=== PATIENT | female | born 1960 | race Caucasian/White ===

== ENCOUNTER 2018-10-19 07:14 | Inpatient (IN) | payer MEDICAID, OTHER ==
[~2018-10-19] VITALS: Ht 165.1 cm; Wt 90.7 kg
[2018-10-19] MEDS ORDERED: ONDANSETRON HCL 4MG/2ML INJ IV STA (07:51)
[2018-10-19] MEDS ORDERED: MORPHINE SULFATE 4 MG/ML CPJ (NOT FOR IM USE) IV STA (07:51)
[2018-10-19] MEDS ORDERED: SODIUM CHLORIDE 0.9% 1,000 ML IV ONE (07:51)
[2018-10-19 08:07] LABS: BASOPHILS % 0.7 % (0.0-2.0); HEMATOCRIT. 39.1 % (36.0-48.0); HEMOGLOBIN. 13.2 g/dL (12.0-16.0); LYMPHOCYTES % 29.5 % (20.0-50.0); MEAN CORPUSCULAR HEMOGLOBIN 31.3 pg (28.0-32.0); MEAN CORPUSCULAR VOLUME 92.5 fL (81.0-99.0); MEAN PLATELET VOLUME 8.4 fl (7.4-10.4); MONOCYTES % 7.9 % (2.0-8.0); NEUTROPHILS % 59.9 % (40.0-76.0); PLATELET 244 x1000/uL (130-400); RED BLOOD CELL COUNT 4.23 mill/uL (4.2-5.4); RED CELL DISTRIBUTION WIDTH 12.9 % (11.6-14.6)
[2018-10-19 08:13] LABS: CHLORIDE 108 mEq/L (98-107)
[2018-10-19 08:18] LABS: D-DIMER 0.64 mg/L FEU (<0.50); PARTIAL THROMBOPLASTIN TIME 29.9 sec (23.4-31.0); PROTHROMBIN TIME 10.7 sec (9.6-11.0)
[2018-10-19] MEDS ORDERED: CLONIDINE 0.1MG TABLET PO PRN ×2 (13:30→15:45)
[2018-10-19 14:30] VITALS: BP 157/70
[2018-10-19] MEDS ORDERED: ASPIRIN 81MG EC TABLET PO SCH (14:30)
[2018-10-19 14:54] VITALS: BP 157/70
[2018-10-19] MEDS ORDERED: LISI10TA5 MT (15:13)
[2018-10-19] MEDS ORDERED: HYDR25TA MT (15:13)
[2018-10-19] MEDS ORDERED: METF-815 MT (15:13)
[2018-10-19] MEDS ORDERED: ONDANSETRON HCL 4MG/2ML INJ IV PRN (15:45)
[2018-10-19] MEDS ORDERED: IPRATROPIUM/ALBUTEROL 0.5-3(2.5)MG/3ML NEB INH PRN (15:45)
[2018-10-19] MEDS ORDERED: LORAZEPAM 0.5MG TABLET PO PRN (15:45)
[2018-10-19] MEDS ORDERED: HYDROCODONE/ACETAMINOPHEN 5/325MG TABLET PO PRN (15:45)
[2018-10-19] MEDS ORDERED: DOCUSATE SODIUM 100MG CAPSULE PO PRN (15:45)
[2018-10-19] MEDS: AMLODIPINE 2.5MG TABLET PO SCH ×2 (15:49→21:44)
[2018-10-19] MEDS: LOSARTAN POTASSIUM 25 MG TABLET PO SCH (15:50)
[2018-10-19 16:00] VITALS: BP 166/41
[2018-10-19] MEDS ORDERED: DEXTROSE 50% WATER 50ML SYRINGE IV PRN ×2 (16:45)
[2018-10-19] MEDS: BLOOD SUGAR DIAGNOSTIC STRIP TEST SCH ×2 (17:22→21:44)
[2018-10-19] MEDS: INSULIN LISPRO 100 UNITS/ML SUBCUT SCH ×2 (17:23→21:00)
[2018-10-19] MEDS: NITROGLYCERIN OINT 1GM/INCH UDPKT TD SCH (17:59)
[2018-10-19 20:00] VITALS: BP 126/60
[2018-10-20] VITALS: BP 109/55
[2018-10-20] MEDS: ACETAMINOPHEN 325MG TABLET PO PRN ×2 (02:03→08:54)
[2018-10-20 04:00] VITALS: BP 148/62
[2018-10-20] MEDS: BLOOD SUGAR DIAGNOSTIC STRIP TEST SCH ×4 (06:00→20:50)
[2018-10-20] MEDS: NITROGLYCERIN OINT 1GM/INCH UDPKT TD SCH ×2 (06:00)
[2018-10-20 06:46] LABS: BASOPHILS % 1.1 % (0.0-2.0); EOSINOPHILS % 2.2 % (0.0-5.0); HEMATOCRIT. 40.4 % (36.0-48.0); HEMOGLOBIN. 13.8 g/dL (12.0-16.0); LYMPHOCYTES % 32.1 % (20.0-50.0); MEAN CORPUSCULAR HEMOGLOBIN 31.5 pg (28.0-32.0); MEAN CORPUSCULAR VOLUME 92.3 fL (81.0-99.0); MEAN PLATELET VOLUME 8.5 fl (7.4-10.4); NEUTROPHILS % 57.6 % (40.0-76.0); PLATELET 215 x1000/uL (130-400); RED BLOOD CELL COUNT 4.37 mill/uL (4.2-5.4); RED CELL DISTRIBUTION WIDTH 13.1 % (11.6-14.6)
[2018-10-20 07:01] LABS: CHLORIDE 106 mEq/L (98-107)
[2018-10-20 07:12] LABS: CREATINE KINASE MB FRACTION 8.6 ng/mL (0.5-3.6)
[2018-10-20 07:14] LABS: LDL CHOLESTEROL 85 mg/dL (5-100)
[2018-10-20 07:16] LABS: CREATINE KINASE 234 IU/L (26-192)
[2018-10-20 07:17] LABS: HDL CHOLESTEROL 58 mg/dL (40-59)
[2018-10-20] MEDS: INSULIN LISPRO 100 UNITS/ML SUBCUT SCH ×4 (07:40→21:00)
[2018-10-20 08:00] VITALS: BP 141/71
[2018-10-20] MEDS: LOSARTAN POTASSIUM 25 MG TABLET PO SCH (08:55)
[2018-10-20] MEDS: AMLODIPINE 2.5MG TABLET PO SCH ×2 (08:55→21:00)
[2018-10-20] MEDS: ASPIRIN 81MG EC TABLET PO SCH (08:55)
[2018-10-20] MEDS ORDERED: ENOXAPARIN 80MG/0.8ML SYR SUBCUT NR (10:15)
[2018-10-20] MEDS: METOPROLOL TARTRATE 25MG TABLET PO SCH ×2 (11:16→21:00)
[2018-10-20] MEDS ORDERED: NITROGLYCERIN OINT 1GM/INCH UDPKT TD SCH (14:00)
[2018-10-20 15:04] LABS: CLARITY URINE CLEAR (CLEAR); COLOR URINE YELLOW (YELLOW); KETONES URINE NEGATIVE (NEGATIVE); LEUKOCYTE ESTERASE URINE TRACE (NEGATIVE); NITRITE URINE NEGATIVE (NEGATIVE); OCCULT BLOOD URINE NEGATIVE (NEGATIVE); PROTEIN URINE NEGATIVE (NEGATIVE); SPECIFIC GRAVITY URINE 1.004 (1.005-1.030); UROBILINOGEN URINE 0.2 E.U./dL (0.2-1.0)
[2018-10-20 15:25] LABS: *AMPHETAMINES SCREEN URINE NEGATIVE (NEGATIVE); *BARBITURATES SCREEN URINE NEGATIVE (NEGATIVE); *BENZODIAZEPINES SCREEN URINE NEGATIVE (NEGATIVE); *COCAINE SCREEN URINE NEGATIVE (NEGATIVE); METHADONE URINE SCREEN NEGATIVE (NEGATIVE); OPIATES URINE SCREEN NEGATIVE (NEGATIVE)
[2018-10-20 15:26] LABS: CANNABINOID URINE SCREEN NEGATIVE (NEGATIVE); PHENCYCLIDINE URINE SCREEN NEGATIVE (NEGATIVE)
[2018-10-20 15:47] LABS: CREATINE KINASE MB FRACTION 4.6 ng/mL (0.5-3.6)
[2018-10-20 16:00] VITALS: BP 115/51
[2018-10-20 20:00] VITALS: BP 119/55
[2018-10-20] MEDS: ATORVASTATIN CALCIUM 40MG TABLET PO SCH (21:13)
[2018-10-21] VITALS: BP 125/60
[2018-10-21 04:00] VITALS: BP 124/68
[2018-10-21] MEDS: BLOOD SUGAR DIAGNOSTIC STRIP TEST SCH ×4 (05:49→21:54)
[2018-10-21] MEDS: INSULIN LISPRO 100 UNITS/ML SUBCUT SCH ×4 (05:59→21:00)
[2018-10-21 06:24] LABS: BASOPHILS % 0.7 % (0.0-2.0); EOSINOPHILS % 2.3 % (0.0-5.0); HEMATOCRIT. 39.7 % (36.0-48.0); HEMOGLOBIN. 13.6 g/dL (12.0-16.0); LYMPHOCYTES % 30.8 % (20.0-50.0); MEAN CORPUSCULAR HEMOGLOBIN 31.7 pg (28.0-32.0); MEAN CORPUSCULAR VOLUME 92.5 fL (81.0-99.0); MEAN PLATELET VOLUME 8.7 fl (7.4-10.4); MONOCYTES % 6.7 % (2.0-8.0); NEUTROPHILS % 59.5 % (40.0-76.0); PLATELET 238 x1000/uL (130-400); RED CELL DISTRIBUTION WIDTH 13.3 % (11.6-14.6)
[2018-10-21 08:00] VITALS: BP 135/65
[2018-10-21] MEDS: LOSARTAN POTASSIUM 25 MG TABLET PO SCH (08:40)
[2018-10-21] MEDS: ASPIRIN 81MG EC TABLET PO SCH (08:40)
[2018-10-21] MEDS: AMLODIPINE 2.5MG TABLET PO SCH ×2 (08:40→21:48)
[2018-10-21] MEDS: METOPROLOL TARTRATE 25MG TABLET PO SCH ×2 (08:41→21:47)
[2018-10-21 09:09] LABS: CHLORIDE 110 mEq/L (98-107)
[2018-10-21 12:00] VITALS: BP 143/69
[2018-10-21 15:52] VITALS: BP 141/77
[2018-10-21] MEDS: ACETAMINOPHEN 325MG TABLET PO PRN (18:00)
[2018-10-21 20:00] VITALS: BP 130/67
[2018-10-21] MEDS: ATORVASTATIN CALCIUM 40MG TABLET PO SCH (21:48)
[2018-10-22] VITALS: BP 126/56
[2018-10-22 04:00] VITALS: BP 122/54
[2018-10-22 06:29] LABS: BASOPHILS % 0.6 % (0.0-2.0); EOSINOPHILS % 1.9 % (0.0-5.0); HEMATOCRIT. 39.9 % (36.0-48.0); HEMOGLOBIN. 13.6 g/dL (12.0-16.0); LYMPHOCYTES % 30.5 % (20.0-50.0); MEAN CORPUSCULAR HEMOGLOBIN 31.7 pg (28.0-32.0); MEAN PLATELET VOLUME 8.7 fl (7.4-10.4); PLATELET 240 x1000/uL (130-400); RED BLOOD CELL COUNT 4.29 mill/uL (4.2-5.4); RED CELL DISTRIBUTION WIDTH 13.1 % (11.6-14.6)
[2018-10-22] MEDS: BLOOD SUGAR DIAGNOSTIC STRIP TEST SCH ×2 (07:09→12:01)
[2018-10-22] MEDS: INSULIN LISPRO 100 UNITS/ML SUBCUT SCH ×2 (07:09→12:01)
[2018-10-22 07:35] LABS: CHLORIDE 109 mEq/L (98-107)
[2018-10-22 08:00] VITALS: BP 138/84
[2018-10-22] MEDS: ASPIRIN 81MG EC TABLET PO SCH (09:00)
[2018-10-22] MEDS: METOPROLOL TARTRATE 25MG TABLET PO SCH (09:00)
[2018-10-22] MEDS: AMLODIPINE 2.5MG TABLET PO SCH (09:10)
[2018-10-22] MEDS: LOSARTAN POTASSIUM 25 MG TABLET PO SCH (09:10)
[2018-10-22] MEDS ORDERED: LIDOCAINE HCL 1% 20ML VIAL (Pyxis) INJ ONE (09:36)
[2018-10-22] MEDS ORDERED: FENTANYL CITRATE/PF 50MCG/ML 2ML VIAL ONE (09:37)
[2018-10-22] MEDS ORDERED: IODIXANOL 320MG/ML 100 ML BOTTLE IV ONE (09:37)
[2018-10-22] MEDS ORDERED: MIDAZOLAM HCL 2 MG/2 ML VIAL ONE (09:37)
[2018-10-22] MEDS ORDERED: ATROPINE SULFATE 1MG/10ML SYR IV PRN (10:30)
[2018-10-22] MEDS ORDERED: ACETAMINOPHEN 325MG TABLET PO PRN (10:30)
[2018-10-22 12:00] VITALS: BP 137/71
[2018-10-22] MEDS: ACETAMINOPHEN 325MG TABLET PO PRN (12:33)
[2018-10-22] MEDS ORDERED: NICARDIPINE 100MCG/ML 10ML VIAL (CATH LAB) IV ONE (13:42)
[2018-10-22] MEDS ORDERED: HEPARIN SODIUM 1,000 UNIT/1ML VIAL IV ONE (13:42)
[2018-10-22] MEDS ORDERED: NITROGLYCERIN 50MCG/ML 10ML VIAL (CATH LAB) IV ONE (13:42)
[2018-10-22 15:13] VITALS: BP 154/76
== END 2018-10-22 16:35 | disposition home or self-care (01) | DRG 190 ==
LOC: ER 07:14 → 8WST 10:38 → EDBEDREQ 12:58 → ENRESERV 12:59 → 3WST 10-22 10:35
PROVIDERS: ADMIT Internal Medicine; ATTEND Internal Medicine
PROC: 4A023N7 Measurement of Cardiac Sampling and Pressure, Left Heart, Percutaneous Approach (ICD-10-PCS; principal; 2018-10-22)
PROC: B2111ZZ Fluoroscopy of Multiple Coronary Arteries using Low Osmolar Contrast (ICD-10-PCS; 2018-10-22)
PROC: B2151ZZ Fluoroscopy of Left Heart using Low Osmolar Contrast (ICD-10-PCS; 2018-10-22)
DX: I21.4 Non-ST elevation (NSTEMI) myocardial infarction (principal); E66.01 Morbid (severe) obesity due to excess calories; E11.9 Type 2 diabetes mellitus without complications; I16.0 Hypertensive urgency; R00.1 Bradycardia, unspecified; I10 Essential (primary) hypertension; E78.5 Hyperlipidemia, unspecified; I77.1 Stricture of artery; Z79.84 Long term (current) use of oral hypoglycemic drugs; Z90.722 Acquired absence of ovaries, bilateral; Z90.710 Acquired absence of both cervix and uterus; Z90.49 Acquired absence of other specified parts of digestive tract; Z68.33 Body mass index [BMI] 33.0-33.9, adult; Z71.3 Dietary counseling and surveillance
CPT/HCPCS: 36415; 71045; 78582; 80048; 80061; 80305; 82550; 82553; 82962; 83036; 83735; 83880; 84443; 84484; 85379; 93005; 93306; 93458; 93970; 96374; 99285; A9558; C1769; C1887; C1893; J1644; J1650; J2250; J2270; J2405; J3010; J3490; J7030; Q9967

== ENCOUNTER 2025-03-30 09:17 | Emergency (ER) | payer MEDICAID ==
[~2025-03-30] VITALS: Ht 160 cm; Wt 82.0 kg
[~2025-03-30 09:17] MED LIST: HYDR25TA MT; LISI10TA26 MT; METF-1149 MT
[2025-03-30 09:24] VITALS: BP 161/72; PULSE 82; RESP 16; TEMP 36.8; O2SAT 100; O2SAT 99
[2025-03-30] MEDS: ACETAMINOPHEN 325MG TABLET PO ONE (09:52)
[2025-03-30] MEDS ORDERED: IBUP-1455 MT (11:58)
== END 2025-03-30 11:57 | disposition home or self-care (01) ==
LOC: ER 09:17
DX: S90.32XA Contusion of left foot, initial encounter (principal); E11.9 Type 2 diabetes mellitus without complications; I10 Essential (primary) hypertension; X58.XXXA Exposure to other specified factors, initial encounter; Y93.89 Activity, other specified; Y92.89 Other specified places as the place of occurrence of the external cause; Y99.8 Other external cause status
CPT/HCPCS: 73630; 99283